=== PATIENT | female | born 1985 | race Caucasian/White ===

== ENCOUNTER 2017-04-22 21:07 | Emergency (ER) | payer SELFPAY ==
[2017-04-22 21:23] LABS: URINE HCG POC HCG POSITIVE (Negative)
[2017-04-22 21:53] LABS: BASO # 0.1 x10^3/uL (0.0-0.2); BASO % 0 % (0-3); EOS # 0.1 x10^3/uL (0.0-0.7); EOS % 1 % (0-3); LYMPH # 1.2 x10^3/uL (1.0-4.8); LYMPH % 6 % (24-48); MEAN CORPUSCULAR HEMOGLOBIN 30 pg (25-35); MEAN CORPUSCULAR HGB CONC 33 g/dL (31-37); MEAN CORPUSCULAR VOLUME 89 fL (79-100); MONO # 0.8 x10^3/uL (0.0-1.1); MONO % 4 % (0-9); NEUT % 89 % (31-73); PLATELET COUNT 275 x10^3/uL (140-400); RED BLOOD COUNT 5.04 x10^6/uL (3.50-5.40); RED CELL DISTRIBUTION WIDTH 13.5 % (11.5-14.5); WHITE BLOOD COUNT 20.1 x10^3/uL (4.0-11.0)
[2017-04-22 21:55] LABS: ADD MAN DIFF? YES; BILIRUBIN,URINE NEGATIVE (NEG); CLARITY,URINE TURBID; COLOR,URINE AMBER; GLUCOSE,URINE NEGATIVE (NEG); NITRITE,URINE NEGATIVE (NEG); PROTEIN,URINE NEGATIVE (NEG-TRACE); UROBILINOGEN,URINE 0.2 mg/dL (0.2 mg/dL)
[2017-04-22 22:07] LABS: ANION GAP 8 (6-14); BLOOD UREA NITROGEN 11 mg/dL (7-20); BUN/CREATININE RATIO 18 (6-20); CALCIUM 8.6 mg/dL (8.5-10.1); CARBON DIOXIDE 26 mmol/L (21-32); CHLORIDE 105 mmol/L (98-107); CREATININE 0.6 mg/dL (0.6-1.0); GFR 115.9; GLUCOSE 94 mg/dL (70-99); POTASSIUM 3.8 mmol/L (3.5-5.1); SODIUM 139 mmol/L (136-145)
[2017-04-22] MEDS: IV NORMAL SALINE 1000ML BAG 1,000 ML IV ×4 (22:10→23:00)
[2017-04-22 22:11] LABS: ALBUMIN 4.1 g/dL (3.4-5.0); ALBUMIN/GLOBULIN RATIO 1.2 (1.0-1.7); ALK PHOS 61 U/L (46-116); ALT (SGPT) 21 U/L (14-59); AMORPHOUS SEDIMENT,UR PRESENT /HPF; AST (SGOT) 17 U/L (15-37); BACTERIA,URINE FEW /HPF (0-FEW); LIPASE 123 U/L (73-393); RBC,URINE 0 /HPF (0-2); SQUAMOUS EPITHELIAL CELL,UR MOD /LPF; TOTAL BILIRUBIN 0.5 mg/dL (0.2-1.0); TOTAL PROTEIN 7.5 g/dL (6.4-8.2)
[2017-04-22 22:32] LABS: % BANDS 2 % (0-9); % EOS 2 % (0-5); % LYMPHS 7 % (24-48); % MONOS 5 % (0-10); % SEGS 84 % (35-66); PLT ESTIMATE ADEQUATE (ADEQUATE)
== END 2017-04-22 23:45 | disposition home or self-care (01) ==
LOC: ER 21:07
DX: O21.0 Mild hyperemesis gravidarum (principal); O26.891 Other specified pregnancy related conditions, first trimester; R10.30 Lower abdominal pain, unspecified; R19.7 Diarrhea, unspecified; O99.321 Drug use complicating pregnancy, first trimester; F12.10 Cannabis abuse, uncomplicated; O99.331 Smoking (tobacco) complicating pregnancy, first trimester; F17.210 Nicotine dependence, cigarettes, uncomplicated; Z96.22 Myringotomy tube(s) status; Z91.018 Allergy to other foods; Z3A.08 8 weeks gestation of pregnancy; Z88.0 Allergy status to penicillin
CPT/HCPCS: 36415; 76801; 80053; 81001; 81025; 83690; 84702; 85007; 85025; 96360; 96361; 99285-25; J7030

== ENCOUNTER 2017-10-30 12:29 | Observation (INO) | payer SELFPAY ==
[~2017-10-30] VITALS: Ht 165.1 cm; Wt 55.3 kg
[~2017-10-30 12:29] MED LIST: DICY10CA53 PO; ONDA4TAB10 PO; ONDA4TAB10 SL
[2017-10-30 14:28] LABS: BILIRUBIN,URINE NEGATIVE (NEG); CLARITY,URINE CLEAR; COLOR,URINE YELLOW; NITRITE,URINE NEGATIVE (NEG); PROTEIN,URINE 30 mg/dL (NEG-TRACE)
[2017-10-30 14:37] LABS: BACTERIA,URINE MANY /HPF (0-FEW); SQUAMOUS EPITHELIAL CELL,UR MOD /LPF
[2017-10-30] MEDS ORDERED: IV NORMAL SALINE 1000ML BAG 1,000 ML IV ONE (15:00)
[2017-10-30] MEDS ORDERED: ONDANSETRON PF 4 MG/2 ML VIAL. IV ONE (15:00)
[2017-10-30 15:16] LABS: BASO % 0 % (0-3); EOS % 0 % (0-3); HEMOGLOBIN 12.8 g/dL (12.0-15.5); LYMPH % 7 % (24-48); MEAN CORPUSCULAR HEMOGLOBIN 30 pg (25-35); MEAN CORPUSCULAR HGB CONC 34 g/dL (31-37); MEAN CORPUSCULAR VOLUME 90 fL (79-100); MONO # 0.7 x10^3/uL (0.0-1.1); MONO % 5 % (0-9); NEUT % 88 % (31-73); PLATELET COUNT 179 x10^3/uL (140-400); RED BLOOD COUNT 4.24 x10^6/uL (3.50-5.40); WHITE BLOOD COUNT 14.8 x10^3/uL (4.0-11.0)
[2017-10-30 15:20] VITALS: BP 118/76
[2017-10-30 15:27] LABS: CALCIUM 8.4 mg/dL (8.5-10.1); CREATININE 0.4 mg/dL (0.6-1.0); POTASSIUM 3.7 mmol/L (3.5-5.1)
[2017-10-30 15:33] LABS: ALBUMIN 2.6 g/dL (3.4-5.0); ALBUMIN/GLOBULIN RATIO 0.7 (1.0-1.7); TOTAL BILIRUBIN 0.2 mg/dL (0.2-1.0); TOTAL PROTEIN 6.1 g/dL (6.4-8.2)
--- NOTE | 2017-10-30 15:35 | RAD ---
OB ULTRASOUND, > 14 WEEKS Clinical Indication: ABD PAIN , unsure of last menstrual period. Comparison: None. Technique: Multiple grayscale images, color Doppler, and M-mode images of the uterus are obtained. Findings: There is a single intrauterine gestation in vertex presentation. The placenta is anterior and fundal in location without evidence of placenta previa. The amount of amniotic fluid appears appropriate. Cervical length is approximately 3.9 cm. Biometrical data: BPD = 7.4 cm for 29 weeks 5 days. HC = 26.7 cm for 29 weeks 0 days. AC = 24.4 cm for 28 weeks 5 days. FL = 5.6 cm for 29 weeks 4 days. HC/AC ratio = 1.09. Overall, the estimated sonographic gestational age is 29 weeks and 2 days for an estimated date of delivery of January 13, 2018. Estimated weight is 1326 +/- 196 grams. The estimated heart rate is 140 beats per minute. A complete anatomic survey is not performed due to advanced gestational age. Impression: Single live intrauterine gestation with estimated sonographic gestational age of 29 weeks and 2 days. Electronically signed by: Khris Maher MD (10/30/2017 3:31 PM) [id number]
--- NOTE | 2017-10-30 15:41 | PHYS DOC ---
Past Medical History Past Medical History: Anemia, Sciatica, Other Additional Past Medical Histor: HYPOGLYCEMIA, SCOLIOSIS Past Surgical History: Tubal ligation, Other Additional Past Surgical Histo: BILAT MYRINGOTOMY W/TUBES Alcohol Use: None Drug Use: Marijuana Adult General Chief Complaint Chief Complaint: ABDOMINAL PAIN [facility] HPI Patient is a 32 year old F who presents with abd pain. Patient thinks her last period may have been about 3 months ago. She is unsure if she is or not. She says she has a cramping pain in the top of her abdomen. She denies chest pain, shortness of breath. She has not followed up with her doctor. She notes that she has a history of IBS and thinks that's what this is. She has intermittent constipation and diarrhea. Denies vaginal bleeding or discharge. Reports she is safe at home. Review of Systems Review of Systems Constitutional: Denies fever or chills HENT: Denies nasal congestion or sore throat Respiratory: Denies cough or shortness of breath Cardiovascular: No additional information not addressed in HPI [] GI: Denies abdominal pain, nausea, vomiting, bloody stools or diarrhea : Denies dysuria or hematuria Musculoskeletal: Denies back pain or joint pain Integument: Denies rash or skin lesions Neurologic: Denies headache, focal weakness or sensory changes All other systems were reviewed and found to be within normal limits, except as documented in this note. Current Medications Current Medications Current Medications Medications (Trade) Dose Ordered Sig/Jossue Start Time Stop Time Status Last Admin Dose Admin Ondansetron HCl (Zofran) 4 mg 1X ONCE 10/30/17 15:00 10/30/17 15:01 DC 10/30/17 15:28 4 MG Sodium Chloride 1,000 ml @ 1,000 mls/hr 1X ONCE 10/30/17 15:00 10/30/17 15:59 10/30/17 15:28 1,000 MLS/HR Allergies Allergies Allergies Coded Allergies Type Severity Reaction Last Updated Verified Penicillins Allergy Intermediate 01/31/17 Yes strawberry Allergy Intermediate 01/31/17 Yes Physical Exam Physical Exam Constitutional: Well developed, well nourished, no acute distress, non-toxic appearance. HENT: Normocephalic, atraumatic, bilateral external ears normal, oropharynx moist, no oral exudates, nose normal. Eyes: PERRLA, EOMI, conjunctiva normal, no discharge. Neck: Normal range of motion, no tenderness, supple, no stridor. Cardiovascular:Heart rate regular rhythm, no murmur Lungs & Thorax: Bilateral breath sounds clear to auscultation Abdomen: Bowel sounds normal, soft, no tenderness, no masses, appears gravid Skin: Warm, dry, no erythema, no rash. Back: No tenderness, no CVA tenderness. Extremities: ROM intact, no edema. Neurologic: Alert and oriented X 3, normal motor function, normal sensory function, no focal deficits noted. Current Patient Data Vital Signs Vital Signs Date Time Temp Pulse Resp B/P (MAP) Pulse Ox O2 Delivery O2 Flow Rate FiO2 10/30/17 13:00 96.0 73 12 94/55 (68) 99 Room Air 96.0 Lab Values Laboratory Tests Test 10/30/17 13:00 10/30/17 14:19 10/30/17 15:00 Urine Collection Type Void Urine Color Yellow Urine Clarity Clear Urine pH 7.0 Urine Specific [place] 1.025 Urine Protein 30 mg/dL (NEG-TRACE) Urine Glucose (UA) Negative mg/dL (NEG) Urine Ketones (Stick) Negative mg/dL (NEG) Urine Blood Negative (NEG) Urine Nitrite Negative (NEG) Urine Bilirubin Negative (NEG) Urine Urobilinogen Dipstick 1.0 mg/dL (0.2 mg/dL) Urine Leukocyte Esterase Small (NEG) Urine RBC 3-5 /HPF (0-2) Urine WBC 1-4 /HPF (0-4) Urine Squamous Epithelial Cells Mod /LPF Urine Bacteria Many /HPF (0-FEW) Urine Mucus Marked /LPF POC Urine HCG, Qualitative Hcg positive (Negative) White Blood Count 14.8 x10^3/uL (4.0-11.0) H Red Blood Count 4.24 x10^6/uL (3.50-5.40) Hemoglobin 12.8 g/dL (12.0-15.5) Hematocrit 38.0 % (36.0-47.0) Mean Corpuscular Volume 90 fL (79-100) Mean Corpuscular Hemoglobin 30 pg (25-35) Mean Corpuscular Hemoglobin Concent 34 g/dL (31-37) Red Cell Distribution Width 13.0 % (11.5-14.5) Platelet Count 179 x10^3/uL (140-400) Neutrophils (%) (Auto) 88 % (31-73) H Lymphocytes (%) (Auto) 7 % (24-48) L Monocytes (%) (Auto) 5 % (0-9) Eosinophils (%) (Auto) 0 % (0-3) Basophils (%) (Auto) 0 % (0-3) Neutrophils # (Auto) 13.0 x10^3uL (1.8-7.7) H Lymphocytes # (Auto) 1.0 x10^3/uL (1.0-4.8) Monocytes # (Auto) 0.7 x10^3/uL (0.0-1.1) Eosinophils # (Auto) 0.0 x10^3/uL (0.0-0.7) Basophils # (Auto) 0.0 x10^3/uL (0.0-0.2) Segmented Neutrophils % 74 % (35-66) H Band Neutrophils % 10 % (0-9) H Lymphocytes % 9 % (24-48) L Monocytes % 7 % (0-10) Toxic Granulation Slight Toxic Vacuolation Slight Platelet Estimate Adequate (ADEQUATE) Sodium Level 137 mmol/L (136-145) Potassium Level 3.7 mmol/L (3.5-5.1) Chloride Level 105 mmol/L (98-107) Carbon Dioxide Level 26 mmol/L (21-32) Anion Gap 6 (6-14) Blood Urea Nitrogen 4 mg/dL (7-20) L Creatinine 0.4 mg/dL (0.6-1.0) L Estimated GFR (Cockcroft-Gault) 185.0 BUN/Creatinine Ratio 10 (6-20) Glucose Level 77 mg/dL (70-99) Calcium Level 8.4 mg/dL (8.5-10.1) L Total Bilirubin 0.2 mg/dL (0.2-1.0) Aspartate Amino Transferase (AST) 11 U/L (15-37) L Alanine Aminotransferase (ALT) 11 U/L (14-59) L Alkaline Phosphatase 105 U/L (46-116) Total Protein 6.1 g/dL (6.4-8.2) L Albumin 2.6 g/dL (3.4-5.0) L Albumin/Globulin Ratio 0.7 (1.0-1.7) L Laboratory Tests 10/30/17 15:00 Laboratory Tests 10/30/17 15:00 Course & Med Decision Making Course & Med Decision Making Pertinent Labs and Imaging studies reviewed. (See chart for details) 32-year-old female presents with abdominal cramping. Patient's test incidentally is positive. I informed her of this. Lab work ordered as well as ultrasound. Ultrasound shows 29 week . Patient's labs are reassuring. Patient transferred to L&D for labor rule out. Dragon Disclaimer Dragon Disclaimer This electronic medical record was generated, in whole or in part, using a voice recognition dictation system. Departure Departure Impression: Primary Impression: Disposition: 01 HOME, SELF-CARE Condition: STABLE Referrals: NO PCP (PCP) VINCE PLASENCIA MD Oct 30, 2017 15:41
[2017-10-30 15:43] LABS: % BANDS 10 % (0-9); % LYMPHS 9 % (24-48); % MONOS 7 % (0-10); % SEGS 74 % (35-66)
[2017-10-30 15:44] LABS: PLT ESTIMATE ADEQUATE (ADEQUATE); TOXIC GRANULATION SLIGHT; TOXIC VACUOLATION SLIGHT
[2017-10-30 15:55] LABS: BARBITURATES NEG (NEG); BENZODIAZEPINES NEG (NEG); CANNABINOIDS POS (NEG); COCAINE NEG (NEG); METHADONE NEG (NEG); OPIATES NEG (NEG); PHENCYCLIDINE NEG (NEG)
[2017-10-30 16:01] LABS: AMPHETAMINE/METHAMPHETAMINE POS (NEG)
[2017-10-30] MEDS ORDERED: IV RINGERS,LACTATED 1000ML 1,000 ML IV SCH (16:47)
[2017-10-30] MEDS ORDERED: ACETAMINOPHEN 325 MG TABLET. PO ONE (17:00)
== END 2017-10-30 19:34 | disposition home or self-care (01) ==
LOC: ER 12:29 → 3 SO LND 15:45
PROVIDERS: ADMIT Obstetrics & Gynecology; ATTEND Obstetrics & Gynecology
DX: O21.2 Late vomiting of pregnancy (principal); O26.893 Other specified pregnancy related conditions, third trimester; R19.7 Diarrhea, unspecified; Z3A.29 29 weeks gestation of pregnancy; Z79.899 Other long term (current) drug therapy
CPT/HCPCS: 36415; 76805; 80053; 80307; 81001; 81025; 84702; 85007; 85025; 86592; 86703; 86762; 86850; 86900; 86901; 87340; 87491; 87591; 96361; 96374; 99285; G0378; J2405; J7030; G0379; J7120; G0479

== ENCOUNTER 2017-10-31 04:26 | Observation (INO) | payer SELFPAY ==
[2017-10-30 15:20] VITALS: BP 118/76
[~2017-10-31] VITALS: Ht 165.1 cm; Wt 55.3 kg
[2017-10-31] MEDS ORDERED: ACETAMINOPHEN 325 MG TABLET. PO PRN (05:00)
[2017-10-31] MEDS ORDERED: ONDANSETRON PF 4 MG/2 ML VIAL. IV PRN (05:00)
[2017-10-31] MEDS ORDERED: MAG HYDROX/ALUMINUM HYD/SIMETH 30 ML ORAL.SUSP PO PRN (05:00)
[2017-10-31] MEDS: IV RINGERS,LACTATED 1000ML 1,000 ML IV SCH ×2 (05:07→08:53)
[2017-10-31] MEDS ORDERED: BUTORPHANOL 2 MG/ML VIAL. IV ONE (05:15)
[2017-10-31 08:24] LABS: BASO % 0 % (0-3); EOS % 0 % (0-3); HEMATOCRIT 35.4 % (36.0-47.0); HEMOGLOBIN 12.1 g/dL (12.0-15.5); LYMPH # 1.1 x10^3/uL (1.0-4.8); LYMPH % 13 % (24-48); MEAN CORPUSCULAR HEMOGLOBIN 30 pg (25-35); MEAN CORPUSCULAR HGB CONC 34 g/dL (31-37); MEAN CORPUSCULAR VOLUME 89 fL (79-100); MONO # 0.5 x10^3/uL (0.0-1.1); MONO % 6 % (0-9); NEUT # 6.8 x10^3uL (1.8-7.7); NEUT % 81 % (31-73); PLATELET COUNT 166 x10^3/uL (140-400); RED BLOOD COUNT 3.97 x10^6/uL (3.50-5.40); WHITE BLOOD COUNT 8.4 x10^3/uL (4.0-11.0)
[2017-10-31 09:35] LABS: BARBITURATES NEG (NEG); BENZODIAZEPINES NEG (NEG); COCAINE NEG (NEG); METHADONE NEG (NEG); OPIATES NEG (NEG); PHENCYCLIDINE NEG (NEG)
[2017-10-31 09:45] LABS: AMPHETAMINE/METHAMPHETAMINE POS (NEG); CANNABINOIDS POS (NEG)
== END 2017-10-31 18:15 | disposition home or self-care (01) ==
LOC: 3 SO LND 04:26
PROVIDERS: ADMIT Obstetrics & Gynecology; ATTEND Obstetrics & Gynecology
DX: O26.893 Other specified pregnancy related conditions, third trimester (principal); R10.9 Unspecified abdominal pain; Z3A.29 29 weeks gestation of pregnancy; Z79.899 Other long term (current) drug therapy
CPT/HCPCS: 36415; 80307; 85025; 96361; 96374; 96375; G0378; G0379; J2405; J7120; G0479

== ENCOUNTER 2018-01-07 17:05 | Inpatient (IN) | payer SELFPAY ==
[~2018-01-07] VITALS: Ht 165.1 cm; Wt 65.3 kg
[~2018-01-07 17:05] MED LIST changes: +OXYTOCIN PREMIX 30 UNIT/500 ML BAG. IV ONE
[2018-01-07] MEDS ORDERED: IV RINGERS,LACTATED 1000ML 1,000 ML IV SCH (17:22)
[2018-01-07] MEDS ORDERED: LIDOCAINE 1% PF 30 ML VIAL. ONE (17:26)
[2018-01-07] MEDS ORDERED: OXYTOCIN 30 UNIT/500 ML PREMIX 500 ML IV ONE (17:26)
[2018-01-07] MEDS ORDERED: OXYTOCIN 30 UNIT/500 ML PREMIX 500 ML IV PRN ×3 (17:30→18:00)
[2018-01-07] MEDS ORDERED: LIDOCAINE 1% PF 30 ML VIAL. INJ PRN (17:30)
[2018-01-07] MEDS ORDERED: 0.9 % SODIUM CHLORIDE 10 ML DISP.SYRIN. IV PRN ×2 (17:30→18:00)
[2018-01-07] MEDS ORDERED: TERBUTALINE 1 MG/ML VIAL. SQ PRN (17:30)
[2018-01-07] MEDS ORDERED: miSOPROStol 200MCG TAB 200 MCG TABLET ONE ×2 (17:33→18:00)
--- NOTE | 2018-01-07 17:48 | PDOC1 ---
OB - History Hx of Present Care: None Ultrasounds: Other (one sono at 16 wks) Obstetrical Complications: None Medical Complications: None Other Concerns: Drug use throughout including methamphetamines and marijuana. Past Family/Social History * Past Medical, Surgical, Family and Obstetric Histories reviewed from chart. Blood Type: Unknown Rubella: Unknown RPR/VDRL: Unknown GBS Status: Unknown HBsAG: Unknown OB - Chief Complaint & HPI Date of Admission: Date of Admission: Jan 07, 2018 at 17:05 Chief Complaint/History : 7 Para: 6 EGA: 39 Reason for admission: active labor Admission Nurse Assessment Rev: Yes OB - Admission Exam Physical Exam HEENT: Normal Heart: Regular Rate Lungs: Clear Abdomen: Gravid, Non tender, Soft Extremities: Normal Pulses, No tenderness or swelling Cervical Dilatation: 10cm Effacement: 100% Station: +3 Membranes: Intact Heart Rate: Normal Accelerations: Accelerations Present Decelerations: No decelerations Contractions on Admission: < 5 Minutes Apart Intensity: Firm Text A: 39 wks IUP No care Drug use during P: Admit for labor management. TANA MARTINEZ Jr, MD Jan 07, 2018 17:48
--- NOTE | 2018-01-07 17:51 | PDOC ---
VAGINAL DELIVERY DATE DATE: 01/07/18 TIME: 17:48 : 7 Para: 7 EGA: 39 VAGINAL DELIVERY: VTX VACCUM ASSISTED: No PLACENTA: Spontaneous 8/9 SEX: Female WEIGHT Weight [ 2625 gm] Nuchal Cord: No Amniotic Fluid: Clear PAIN: Natural EPISIOTOMY: No EXTENSION: No EBL 300 ml COMPLICATIONS none ADDITIONAL NOTES Pt. with no PNC. She reports methamphetamine and marijuana use during . She does not have custody of any previous children. She adopted 2 out. Her parents and FOB parents have 2 children each. Signs of Intrauterine Infectio: None Shoulder Dystocia: No TANA MARTINEZ Jr, MD Jan 07, 2018 17:50
[2018-01-07 17:54] LABS: BASO % 0 % (0-3); EOS % 0 % (0-3); HEMATOCRIT 36.1 % (36.0-47.0); HEMOGLOBIN 12.1 g/dL (12.0-15.5); LYMPH # 1.9 x10^3/uL (1.0-4.8); LYMPH % 17 % (24-48); MEAN CORPUSCULAR HEMOGLOBIN 29 pg (25-35); MEAN CORPUSCULAR HGB CONC 33 g/dL (31-37); MEAN CORPUSCULAR VOLUME 86 fL (79-100); MONO # 0.6 x10^3/uL (0.0-1.1); MONO % 6 % (0-9); NEUT # 8.7 x10^3uL (1.8-7.7); NEUT % 77 % (31-73); PLATELET COUNT 220 x10^3/uL (140-400); RED BLOOD COUNT 4.21 x10^6/uL (3.50-5.40); RED CELL DISTRIBUTION WIDTH 14.2 % (11.5-14.5); WHITE BLOOD COUNT 11.3 x10^3/uL (4.0-11.0)
[2018-01-07 17:54] LABS: BARBITURATES NEG (NEG); BENZODIAZEPINES NEG (NEG); CANNABINOIDS POS (NEG); COCAINE NEG (NEG); METHADONE NEG (NEG); OPIATES NEG (NEG); PHENCYCLIDINE NEG (NEG)
[2018-01-07 17:55] LABS: AMPHETAMINE/METHAMPHETAMINE NEG (NEG)
[2018-01-07] MEDS ORDERED: MMR per PROTOCOL. MC PRN (18:00)
[2018-01-07] MEDS ORDERED: MAGNESIUM HYDROXIDE 2,400 MG/30 ML ORAL.SUSP. PO PRN (18:00)
[2018-01-07] MEDS ORDERED: PHENYLEPH/MINERAL OIL/PETROLAT RECTAL OINTMENT 28GM TUBE. RC PRN (18:00)
[2018-01-07] MEDS ORDERED: ACETAMINOPHEN 325 MG TABLET. PO PRN (18:00)
[2018-01-07] MEDS ORDERED: MAG HYDROX/ALUMINUM HYD/SIMETH 30 ML ORAL.SUSP PO PRN (18:00)
[2018-01-07] MEDS ORDERED: BENZOCAINE 20% TOPICAL AEROSOL SPRAY 57GM CAN. TP PRN (18:00)
[2018-01-07] MEDS ORDERED: HYDROCORTISONE 1% TOPICAL OINTMENT 30GM TUBE. TP PRN (18:00)
[2018-01-07] MEDS ORDERED: SIMETHICONE 80 MG TAB.CHEW PO PRN (18:00)
[2018-01-07] MEDS ORDERED: diphenhydrAMINE HCL 25 MG CAPSULE PO PRN (18:00)
[2018-01-07] MEDS ORDERED: IBUPROFEN 400 MG TABLET. PO PRN (18:00)
[2018-01-07 18:01] LABS: BILIRUBIN,URINE NEGATIVE (NEG); CLARITY,URINE TURBID; COLOR,URINE YELLOW; NITRITE,URINE NEGATIVE (NEG); PROTEIN,URINE NEGATIVE (NEG-TRACE)
[2018-01-07] MEDS ORDERED: PNV1TABL25 PO (18:03)
[2018-01-07 18:19] LABS: AMORPHOUS SEDIMENT,UR PRESENT /HPF; BACTERIA,URINE FEW /HPF (0-FEW); SQUAMOUS EPITHELIAL CELL,UR FEW /LPF
[2018-01-07] MEDS: IBUPROFEN 400 MG TABLET. PO PRN (19:30)
[2018-01-07 20:10] VITALS: BP 109/76
[2018-01-07 21:10] VITALS: BP 100/61
[2018-01-07] MEDS: ZOLPIDEM 5 MG TABLET. PO PRN (21:18)
[2018-01-07] MEDS ORDERED: INFLUENZA VAX SCREEN BY RX. MC PRN (21:45)
[2018-01-08 01:30] VITALS: BP 105/70
[2018-01-08 06:01] VITALS: BP 97/64
[2018-01-08 07:18] LABS: BASO % 0 % (0-3); EOS # 0.1 x10^3/uL (0.0-0.7); EOS % 1 % (0-3); HEMATOCRIT 34.6 % (36.0-47.0); HEMOGLOBIN 11.6 g/dL (12.0-15.5); LYMPH # 3.2 x10^3/uL (1.0-4.8); LYMPH % 23 % (24-48); MEAN CORPUSCULAR HEMOGLOBIN 29 pg (25-35); MEAN CORPUSCULAR HGB CONC 34 g/dL (31-37); MEAN CORPUSCULAR VOLUME 85 fL (79-100); MONO # 0.8 x10^3/uL (0.0-1.1); MONO % 5 % (0-9); NEUT # 10.1 x10^3uL (1.8-7.7); NEUT % 71 % (31-73); PLATELET COUNT 205 x10^3/uL (140-400); RED BLOOD COUNT 4.05 x10^6/uL (3.50-5.40); RED CELL DISTRIBUTION WIDTH 14.2 % (11.5-14.5); WHITE BLOOD COUNT 14.2 x10^3/uL (4.0-11.0)
[2018-01-08] MEDS ORDERED: FERROUS SULFATE 325 MG TABLET. PO SCH (08:00)
[2018-01-08] MEDS: IBUPROFEN 400 MG TABLET. PO PRN ×3 (09:03→22:42)
[2018-01-08] MEDS: DOCUSATE SODIUM 100 MG CAPSULE. PO PRN ×2 (09:03→22:42)
[2018-01-08 15:10] VITALS: BP 115/74
--- NOTE | 2018-01-08 17:36 | PDOC ---
OB Progress Note Date of Service 01/08/18 Time of Evaluation 1730 Notes Pt. feeling well. No complaints. Lab Laboratory Tests Test 01/07/18 17:25 01/07/18 17:30 01/08/18 06:30 White Blood Count 11.3 x10^3/uL (4.0-11.0) 14.2 x10^3/uL (4.0-11.0) Red Blood Count 4.21 x10^6/uL (3.50-5.40) 4.05 x10^6/uL (3.50-5.40) Hemoglobin 12.1 g/dL (12.0-15.5) 11.6 g/dL (12.0-15.5) Hematocrit 36.1 % (36.0-47.0) 34.6 % (36.0-47.0) Mean Corpuscular Volume 86 fL (79-100) 85 fL (79-100) Mean Corpuscular Hemoglobin 29 pg (25-35) 29 pg (25-35) Mean Corpuscular Hemoglobin Concent 33 g/dL (31-37) 34 g/dL (31-37) Red Cell Distribution Width 14.2 % (11.5-14.5) 14.2 % (11.5-14.5) Platelet Count 220 x10^3/uL (140-400) 205 x10^3/uL (140-400) Neutrophils (%) (Auto) 77 % (31-73) 71 % (31-73) Lymphocytes (%) (Auto) 17 % (24-48) 23 % (24-48) Monocytes (%) (Auto) 6 % (0-9) 5 % (0-9) Eosinophils (%) (Auto) 0 % (0-3) 1 % (0-3) Basophils (%) (Auto) 0 % (0-3) 0 % (0-3) Neutrophils # (Auto) 8.7 x10^3uL (1.8-7.7) 10.1 x10^3uL (1.8-7.7) Lymphocytes # (Auto) 1.9 x10^3/uL (1.0-4.8) 3.2 x10^3/uL (1.0-4.8) Monocytes # (Auto) 0.6 x10^3/uL (0.0-1.1) 0.8 x10^3/uL (0.0-1.1) Eosinophils # (Auto) 0.0 x10^3/uL (0.0-0.7) 0.1 x10^3/uL (0.0-0.7) Basophils # (Auto) 0.0 x10^3/uL (0.0-0.2) 0.0 x10^3/uL (0.0-0.2) Treponema pallidum Antibody Nonreactive (Nonreactive) Urine Collection Type Unknown Urine Color Yellow Urine Clarity Turbid Urine pH 8.0 Urine Specific [place] 1.025 Urine Protein Negative mg/dL (NEG-TRACE) Urine Glucose (UA) Negative mg/dL (NEG) Urine Ketones (Stick) Negative mg/dL (NEG) Urine Blood Trace (NEG) Urine Nitrite Negative (NEG) Urine Bilirubin Negative (NEG) Urine Urobilinogen Dipstick 1.0 mg/dL (0.2 mg/dL) Urine Leukocyte Esterase Small (NEG) Urine RBC 6-10 /HPF (0-2) Urine WBC 1-4 /HPF (0-4) Urine Squamous Epithelial Cells Few /LPF Urine Amorphous Sediment Present /HPF Urine Bacteria Few /HPF (0-FEW) Urine Mucus Marked /LPF Urine Opiates Screen Neg (NEG) Urine Methadone Screen Neg (NEG) Urine Barbiturates Neg (NEG) Urine Phencyclidine Screen Neg (NEG) Urine Amphetamine/Methamphetamine Neg (NEG) Urine Benzodiazepines Screen Neg (NEG) Urine Cocaine Screen Neg (NEG) Urine Cannabinoids Screen Pos (NEG) Urine Ethyl Alcohol Neg (NEG) Laboratory Tests Test 01/08/18 06:30 White Blood Count 14.2 x10^3/uL (4.0-11.0) Red Blood Count 4.05 x10^6/uL (3.50-5.40) Hemoglobin 11.6 g/dL (12.0-15.5) Hematocrit 34.6 % (36.0-47.0) Mean Corpuscular Volume 85 fL (79-100) Mean Corpuscular Hemoglobin 29 pg (25-35) Mean Corpuscular Hemoglobin Concent 34 g/dL (31-37) Red Cell Distribution Width 14.2 % (11.5-14.5) Platelet Count 205 x10^3/uL (140-400) Neutrophils (%) (Auto) 71 % (31-73) Lymphocytes (%) (Auto) 23 % (24-48) Monocytes (%) (Auto) 5 % (0-9) Eosinophils (%) (Auto) 1 % (0-3) Basophils (%) (Auto) 0 % (0-3) Neutrophils # (Auto) 10.1 x10^3uL (1.8-7.7) Lymphocytes # (Auto) 3.2 x10^3/uL (1.0-4.8) Monocytes # (Auto) 0.8 x10^3/uL (0.0-1.1) Eosinophils # (Auto) 0.1 x10^3/uL (0.0-0.7) Basophils # (Auto) 0.0 x10^3/uL (0.0-0.2) Medications Current Medications Sodium Chloride (Normal Saline Flush) 3 ml QSHIFT PRN IV AFTER MEDS AND BLOOD DRAWS; Start 01/07/18 at 17:30 Ringer's Solution 1,000 ml @ 125 mls/hr Q8H IV ; Start 01/07/18 at 17:22; Stop 01/08/18 at 06:07; Status DC Terbutaline Sulfate (Brethine) 0.25 mg 1X PRN PRN SQ SEE COMMENTS; Start 01/07 at 17:30; Stop 01/08/18 at 17:29; Status DC Lidocaine HCl (Xylocaine 1% Pf 30ml Vial) 30 ml 1X PRN PRN INJ SEE COMMENTS; Start 01/07/18 at 17:30; Stop 01/09/18 at 17:29 Oxytocin/Sodium Chloride 500 ml @ 0 mls/hr CONT PRN IV SEE I/O RECORD; Start 01/07/18 at 17:30 Oxytocin/Sodium Chloride 500 ml @ 0 mls/hr CONT PRN PRN IV Post delivery bleeding Last administered on 01/07/18at 18:12; Start 01/07/18 at 17:30 Ibuprofen (Motrin) 800 mg PRN Q6HRS PRN PO PAIN Last administered on at 14:57; Start 01/07/18 at 17:30 Lidocaine HCl (Xylocaine 1% Pf 30ml Vial) 30 ml STK-MED ONCE .ROUTE ; Start at 17:26; Stop 01/07/18 at 17:27; Status DC Oxytocin/Sodium Chloride 500 ml @ As Directed STK-MED ONCE IV ; Start at 17:26; Stop 01/07/18 at 17:27; Status DC Misoprostol (Cytotec 200mcg Tab) 200 mcg STK-MED ONCE .ROUTE ; Start 01/07/18 at 17:33; Stop 01/07/18 at 17:34; Status DC Sodium Chloride (Normal Saline Flush) 10 ml QSHIFT PRN IV AFTER MEDS AND BLOOD DRAWS; Start 01/07/18 at 18:00 Oxytocin/Sodium Chloride 500 ml @ 62.5 mls/hr CONT PRN IV SEE I/O RECORD; Start 01/07/18 at 18:00; Stop 01/08/18 at 01:59; Status DC Acetaminophen (Tylenol) 650 mg PRN Q6HRS PRN PO MILD PAIN / TEMP Last administered on 01/08/18at 14:56; Start 01/07/18 at 18:00 Ibuprofen (Motrin) 800 mg PRN Q8HRS PRN PO INFLAMMATION/PAIN PREVENTION; Start 01/07/18 at 18:00; Status UNV Docusate Sodium (Colace) 100 mg PRN BID PRN PO HARD STOOLS Last administered on 01/08/18at 09:03; Start 01/07/18 at 18:00 Magnesium Hydroxide (Milk Of Magnesia) 2,400 mg PRN DAILY PRN PO CONSTIPATION; Start 01/07/18 at 18:00 Al Hydroxide/Mg Hydroxide (Mylanta Plus Xs) 30 ml PRN Q4HRS PRN PO HEARTBURN / GAS; Start 01/07/18 at 18:00 Simethicone (Gas-X) 80 mg PRN AFTMEALHC PRN PO GAS / BLOATING; Start 01/07/18 at 18:00 Diphenhydramine HCl (Benadryl) 25 mg PRN Q6HRS PRN PO ITCHING; Start 01/07/18 at 18:00 Benzocaine (Americaine) 1 spray PRN QID PRN TP TOPICAL PAIN Last administered on 01/07/18at 19:30; Start 01/07/18 at 18:00 Phenyleph/Shark Oil/Min Oil/Petrol (Preparation H) 1 shashi PRN QID PRN RC RECTAL PAIN; Start 01/07/18 at 18:00 Hydrocortisone (Cortaid) 1 shashi PRN QID PRN TP PERINEAL PAIN; Start 01/07/18 at 18:00 Ferrous Sulfate (Feosol) 325 mg BIDWMEALS PO ; Start 01/08/18 at 08:00 Zolpidem Tartrate (Ambien) 5 mg PRN QHS PRN PO INSOMNIA, MAY REPEAT X1 Last administered on 01/07/18at 21:18; Start 01/07/18 at 18:00 Info (Do NOT chart on this placeholder) 1 ea 1X PRN PRN MC SEE COMMENTS; Start 01/07/18 at 18:00 Info (Do NOT chart on this placeholder) 1 ea 1X PRN PRN MC SEE COMMENTS; Start 01/07/18 at 18:00 Info (FLU VACCINE SCREEN per RX) 1 each PRN 1X PRN MC SEE COMMENTS; Start at 21:45; Status UNV Influenza Virus Vaccine (Afluria Trivalent [id number] Syringe) 0.5 ml ONCE ONCE VAX IM Last administered on 01/08/18at 12:39; Start 01/08/18 at 09:00; Stop 01/08/18 at 09:01; Status DC Oxytocin/Sodium Chloride (Oxytocin Premix Infusion) 30 unit STK-MED ONCE IV ; Start 01/07/18 at 17:00; Stop 01/08/18 at 13:12; Status DC Misoprostol (Cytotec 200mcg Tab) 800 mcg STK-MED ONCE .ROUTE ; Start 01/07/18 at 18:00; Stop 01/08/18 at 13:20; Status DC Active Scripts Active Reported Tablet (Pnv Cmb#95/Ferrous Fumarate/Fa) 1 Each Tablet 1 Tab PO DAILY Exam Abd: soft, non tender, fundus firm Assessment PPD#1 s/p Plan of Care: Continue current Tx, TANA Flanagan Jr, MD Jan 08, 2018 17:36
[2018-01-08 18:31] VITALS: BP 121/71
[2018-01-08 22:40] VITALS: BP 104/72
[2018-01-08] MEDS: ZOLPIDEM 5 MG TABLET. PO PRN (22:42)
--- NOTE | 2018-01-09 09:54 | PDOC3 ---
OB DISCHARGE SUMMARY DATE OF ADMISSION: 01/07/18 DATE OF DISCHARGE: 01/09/18 REASON FOR ADMISSION: Onset of labor INTRAPARTUM PROCEDURES: Spontanous Vag Deliv DISCHARGE DIAGNOSIS: Term Delivered, Others (no care) DISCHARGE INFORMATION: Activity (ad reyna), Diet (regular), Instructions (pelvic rest x 6 wks) HOSPITAL COURSE Term gestation with no care presented in labor. She delivered vaginally without complications. She has h/o drug use during . TANA MARTINEZ Jr, MD Jan 09, 2018 09:54
--- NOTE | 2018-01-09 09:55 | DISCH ---
DISCHARGE INSTRUCTIONS Condition on Discharge Condition on Discharge: Stable Activity After Discharge Activity Instructions for Disc: Activity as tolerated Lifting Instructions after Dis: No heavy lifting Driving Instructions after Dis: Do not drive today Diet after Discharge Diet after Discharge: Regular Contacting the DRLevon after DC Call your doctor for: Concerns you may have Follow-Up Follow up with: Dr. Xiong in 6 wks. TANA XIONG Jr, MD Jan 09, 2018 09:55
[2018-01-09] MEDS ORDERED: IBUP-1027 PO (09:57)
[2018-01-09] MEDS: IBUPROFEN 400 MG TABLET. PO PRN (10:40)
== END 2018-01-09 10:45 | disposition home or self-care (01) | DRG 807 ==
LOC: 3 SO LND 17:05 → OBSVTOIN 17:05 → 3 NORTH 20:10
PROVIDERS: ADMIT Obstetrics & Gynecology; ATTEND Obstetrics & Gynecology
PROC: 10E0XZZ Delivery of Products of Conception, External Approach (ICD-10-PCS; principal; 2018-01-07)
DX: O99.324 Drug use complicating childbirth (principal); Z37.0 Single live birth; F12.90 Cannabis use, unspecified, uncomplicated; Z3A.39 39 weeks gestation of pregnancy
CPT/HCPCS: 36415; 80307; 81001; 85025; 86592; 86850; 86900; 86901; 87086; 90471; 90756; G0378; J2590; G0479; Q2035

== ENCOUNTER 2018-06-04 08:52 | Emergency (ER) | payer SELFPAY ==
[~2018-06-04] VITALS: Ht 165.1 cm; Wt 52.2 kg
[~2018-06-04 08:52] MED LIST changes: +IBUP-1027 PO; -OXYTOCIN PREMIX 30 UNIT/500 ML BAG. IV ONE; +PNV1TABL25 PO
--- NOTE | 2018-06-04 09:34 | PHYS DOC ---
Past Medical History Additional Past Medical Histor: HYPOGLYCEMIA, SCOLIOSIS Past Surgical History: No Surgical History Additional Past Surgical Histo: BILAT MYRINGOTOMY W/TUBES Smoking: Cigarettes Alcohol Use: None Drug Use: Marijuana Adult General Chief Complaint Chief Complaint: ABDOMINAL PAIN HPI HPI Patient is a 33-year-old female presents to the emergency department for evaluation. She states that this morning she has had multiple episodes of nausea vomiting and diarrhea, along with some generalized abdominal pain. She has not had any fevers or chills. She has not had any bloody emesis or stools, urinary symptoms, vaginal bleeding or discharge. There are no alleviating, or exacerbating factors to the patient's symptoms. She states she has had similar symptoms numerous times in the past, with no clear diagnosis. Review of Systems Review of Systems Constitutional: Denies fever or chills [] Eyes: Denies change in visual acuity, redness, or eye pain [] HENT: Denies nasal congestion or sore throat [] Respiratory: Denies cough or shortness of breath [] Cardiovascular: The patient denies any shortness of breath, chest pain, palpitations, or orthopnea [] GI: No additional information not addressed in HPI [] : Denies dysuria or hematuria [] Musculoskeletal: Denies back pain or joint pain [] Integument: Denies rash or skin lesions [] Neurologic: Denies headache, focal weakness or sensory changes [] Endocrine: Denies polyuria or polydipsia [] All other systems were reviewed and found to be within normal limits, except as documented in this note. Current Medications Current Medications Current Medications Medications (Trade) Dose Ordered Sig/[facility] Start Time Stop Time Status Last Admin Dose Admin Info (CONTRAST GIVEN -- Rx MONITORING) 1 each PRN DAILY PRN 06/04/18 11:30 06/06/18 11:29 Iohexol (Omnipaque 300 Mg/ml) 75 ml 1X ONCE 06/04/18 11:30 06/04/18 11:31 DC 06/04/18 11:29 75 ML Ondansetron HCl (Zofran) 4 mg 1X ONCE 06/04/18 09:45 06/04/18 09:46 DC 06/04/18 09:43 4 MG Sodium Chloride 1,000 ml @ 1,000 mls/hr 1X ONCE 06/04/18 09:30 06/04/18 10:29 DC 06/04/18 10:40 1,000 MLS/HR Allergies Allergies Allergies Coded Allergies Type Severity Reaction Last Updated Verified Penicillins Allergy Intermediate 01/31/17 Yes strawberry Allergy Intermediate 01/31/17 Yes Physical Exam Physical Exam PHYSICAL EXAM: CONSTITUTIONAL: Well developed, well nourished HEAD: normocephalic, atraumatic EENT: PERRL, EOMI. Conjunctivae normal color, sclerae non-icteric; moist mucous membranes. NECK: Supple, non-tender; no meningismus. LUNGS: Lungs CTA, breathing even and unlabored. Normal air movement. HEART: Regular rate and rhythm, no murmur CHEST: No deformity; non-tender ABDOMEN: The abdomen is soft, there is mild diffuse tenderness to palpation to the entire abdomen without focal tenderness, rebound, or guarding, the right lower quadrant and right upper quadrant themselves are relatively nontender, Rondon's sign is absent, no masses or bruits. EXTREM: Normal ROM; no deformity, no calf tenderness. Normal pulses palpable in all extremities. There is no pedal edema. SKIN: No rash; no diaphoresis NEURO: Alert; normal speech and cognition; CN's grossly intact; strength grossly intact without focal deficit. BACK: No CVA TTP. Current Patient Data Vital Signs Vital Signs Date Time Temp Pulse Resp B/P (MAP) Pulse Ox O2 Delivery O2 Flow Rate FiO2 06/04/18 12: 71 11 114/68 (83) 97 Room Air 06/04/18 09:05 97.5 97.5 Lab Values Laboratory Tests Test 06/04/18 09:38 06/04/18 11:02 06/04/18 11:11 White Blood Count 18.3 x10^3/uL (4.0-11.0) H Red Blood Count 5.34 x10^6/uL (3.50-5.40) Hemoglobin 15.8 g/dL (12.0-15.5) H Hematocrit 48.6 % (36.0-47.0) H Mean Corpuscular Volume 91 fL (79-100) Mean Corpuscular Hemoglobin 30 pg (25-35) Mean Corpuscular Hemoglobin Concent 33 g/dL (31-37) Red Cell Distribution Width 14.0 % (11.5-14.5) Platelet Count 236 x10^3/uL (140-400) Neutrophils (%) (Auto) 87 % (31-73) H Lymphocytes (%) (Auto) 8 % (24-48) L Monocytes (%) (Auto) 4 % (0-9) Eosinophils (%) (Auto) 1 % (0-3) Basophils (%) (Auto) 0 % (0-3) Neutrophils # (Auto) 15.9 x10^3uL (1.8-7.7) H Lymphocytes # (Auto) 1.5 x10^3/uL (1.0-4.8) Monocytes # (Auto) 0.7 x10^3/uL (0.0-1.1) Eosinophils # (Auto) 0.1 x10^3/uL (0.0-0.7) Basophils # (Auto) 0.0 x10^3/uL (0.0-0.2) Segmented Neutrophils % 50 % (35-66) Band Neutrophils % 34 % (0-9) H Lymphocytes % 10 % (24-48) L Atypical Lymphocytes % (Manual) 1 % (0-0) H Monocytes % 3 % (0-10) Eosinophils % 1 % (0-5) Metamyelocytes % 1 % (0-0) H Platelet Estimate Adequate (ADEQUATE) Sodium Level 144 mmol/L (136-145) Potassium Level 3.7 mmol/L (3.5-5.1) Chloride Level 105 mmol/L (98-107) Carbon Dioxide Level 25 mmol/L (21-32) Anion Gap 14 (6-14) Blood Urea Nitrogen 10 mg/dL (7-20) Creatinine 0.7 mg/dL (0.6-1.0) Estimated GFR (Cockcroft-Gault) 96.4 BUN/Creatinine Ratio 14 (6-20) Glucose Level 98 mg/dL (70-99) Lactic Acid Level 2.7 mmol/L (0.4-2.0) H Calcium Level 9.0 mg/dL (8.5-10.1) Total Bilirubin 0.1 mg/dL (0.2-1.0) L Aspartate Amino Transferase (AST) 30 U/L (15-37) Alanine Aminotransferase (ALT) 38 U/L (14-59) Alkaline Phosphatase 56 U/L (46-116) Total Protein 7.1 g/dL (6.4-8.2) Albumin 3.5 g/dL (3.4-5.0) Albumin/Globulin Ratio 1.0 (1.0-1.7) Lipase 178 U/L (73-393) Urine Collection Type Unknown Urine Color Yellow Urine Clarity Cloudy Urine pH 5.5 Urine Specific Powers 1.020 Urine Protein Negative mg/dL (NEG-TRACE) Urine Glucose (UA) Negative mg/dL (NEG) Urine Ketones (Stick) Negative mg/dL (NEG) Urine Blood Negative (NEG) Urine Nitrite Negative (NEG) Urine Bilirubin Negative (NEG) Urine Urobilinogen Dipstick 0.2 mg/dL (0.2 mg/dL) Urine Leukocyte Esterase Moderate (NEG) Urine RBC Occ /HPF (0-2) Urine WBC 5-10 /HPF (0-4) Urine Squamous Epithelial Cells Many /LPF Urine Bacteria Many /HPF (0-FEW) Urine Mucus Marked /LPF Urine Trichomonas Present Urine Opiates Screen Neg (NEG) Urine Methadone Screen Neg (NEG) Urine Barbiturates Neg (NEG) Urine Phencyclidine Screen Neg (NEG) Urine Amphetamine/Methamphetamine Pos (NEG) Urine Benzodiazepines Screen Neg (NEG) Urine Cocaine Screen Neg (NEG) Urine Cannabinoids Screen Pos (NEG) Urine Ethyl Alcohol Neg (NEG) POC Urine HCG, Qualitative Hcg negative (Negative) Laboratory Tests 06/04/18 09:38 Laboratory Tests 06/04/18 09:38 EKG EKG [] Radiology/Procedures Radiology/Procedures [PROCEDURE: CT ABD PELV W/ IV CONTRST ONLY EXAM: CT ABDOMEN/PELVIS WITH CONTRAST. HISTORY: Abdominal pain, leukocytosis . TECHNIQUE: Computed tomography of the abdomen and pelvis was performed after the intravenous administration of 75 mL Omnipaque 300. COMPARISON: None. FINDINGS: Lung windows through the visualized portions of the bases reveal mild atelectasis. Bone windows reveal no suspicious lesions. A mild superior plate compression deformity at T11 appears chronic. The liver, gallbladder, pancreas, adrenal glands and spleen are unremarkable. The kidneys enhance normally. There is no hydronephrosis. There are no pathologically enlarged lymph nodes. Fluid throughout the colon suggests diarrhea. There is no clear small bowel wall thickening or obstruction. There is no evidence of appendicitis. IMPRESSION: 1. Fluid throughout the colon suggests diarrhea. Correlate for enterocolitis.] Course & Med Decision Making Course & Med Decision Making Pertinent Labs and Imaging studies reviewed. (See chart for details) [1:00 PM:]Patient remains stable. She is feeling significantly better at this time. I discussed test results, the need for close follow-up, and return precautions. I discussed the importance of abstinence for marijuana and amphetamines. Dragon Disclaimer Dragon Disclaimer This electronic medical record was generated, in whole or in part, using a voice recognition dictation system. Departure Departure Impression: Primary Impression: Abdominal pain Additional Impression: Nausea vomiting and diarrhea Disposition: HOME, SELF-CARE Condition: STABLE Referrals: NO PCP (PCP) Patient Instructions: Abdominal Pain, Viral Gastroenteritis Scripts Ondansetron Hcl (ZOFRAN) 4 Mg Tablet 1 TAB PO Q6HRS PRN for NAUSEA/VOMITING, #20 TAB Prov: GILA TUBBS MD 06/04/18 Problem Qualifiers GILA TUBBS MD Jun 04, 2018 09:34
[2018-06-04] MEDS: ONDANSETRON PF 4 MG/2 ML VIAL. IV ONE (09:43)
[2018-06-04] MEDS: IV NORMAL SALINE 1000ML BAG 1,000 ML IV SCH (09:44)
[2018-06-04 09:54] LABS: BASO % 0 % (0-3); EOS # 0.1 x10^3/uL (0.0-0.7); EOS % 1 % (0-3); HEMATOCRIT 48.6 % (36.0-47.0); HEMOGLOBIN 15.8 g/dL (12.0-15.5); LYMPH # 1.5 x10^3/uL (1.0-4.8); LYMPH % 8 % (24-48); MEAN CORPUSCULAR HEMOGLOBIN 30 pg (25-35); MEAN CORPUSCULAR HGB CONC 33 g/dL (31-37); MEAN CORPUSCULAR VOLUME 91 fL (79-100); MONO # 0.7 x10^3/uL (0.0-1.1); MONO % 4 % (0-9); NEUT # 15.9 x10^3uL (1.8-7.7); NEUT % 87 % (31-73); PLATELET COUNT 236 x10^3/uL (140-400); RED BLOOD COUNT 5.34 x10^6/uL (3.50-5.40); WHITE BLOOD COUNT 18.3 x10^3/uL (4.0-11.0)
[2018-06-04 10:09] LABS: CREATININE 0.7 mg/dL (0.6-1.0); GFR 96.4; POTASSIUM 3.7 mmol/L (3.5-5.1)
[2018-06-04 10:26] LABS: ALBUMIN 3.5 g/dL (3.4-5.0); TOTAL BILIRUBIN 0.1 mg/dL (0.2-1.0); TOTAL PROTEIN 7.1 g/dL (6.4-8.2)
[2018-06-04] MEDS: IV NORMAL SALINE 1000ML BAG 1,000 ML IV ONE (10:40)
[2018-06-04 11:03] LABS: % ATYL 1 % (0-0); % BANDS 34 % (0-9); % EOS 1 % (0-5); % LYMPHS 10 % (24-48); % METAS 1 % (0-0); % MONOS 3 % (0-10); % SEGS 50 % (35-66)
[2018-06-04 11:04] LABS: PLT ESTIMATE ADEQUATE (ADEQUATE)
[2018-06-04 11:19] LABS: BILIRUBIN,URINE NEGATIVE (NEG); CLARITY,URINE CLOUDY; COLOR,URINE YELLOW; NITRITE,URINE NEGATIVE (NEG); PH,URINE 5.5; PROTEIN,URINE NEGATIVE (NEG-TRACE); UROBILINOGEN,URINE 0.2 mg/dL (0.2 mg/dL)
[2018-06-04 11:25] LABS: BARBITURATES NEG (NEG); BENZODIAZEPINES NEG (NEG); CANNABINOIDS POS (NEG); COCAINE NEG (NEG); METHADONE NEG (NEG); OPIATES NEG (NEG); PHENCYCLIDINE NEG (NEG)
[2018-06-04 11:26] LABS: AMPHETAMINE/METHAMPHETAMINE POS (NEG); SQUAMOUS EPITHELIAL CELL,UR MANY /LPF
[2018-06-04 11:27] LABS: BACTERIA,URINE MANY /HPF (0-FEW)
[2018-06-04 11:28] LABS: RBC,URINE OCC /HPF (0-2); TRICHOMONAS,URINE PRESENT
[2018-06-04] MEDS: IOHEXOL 300 MG/ML 100ML VIAL. IV ONE (11:29)
[2018-06-04] MEDS ORDERED: CONTRAST GIVEN. MC PRN (11:30)
[2018-06-04 12:19] VITALS: BP 114/68
--- NOTE | 2018-06-04 12:28 | RAD ---
EXAM: CT ABDOMEN/PELVIS WITH CONTRAST. HISTORY: Abdominal pain, leukocytosis . TECHNIQUE: Computed tomography of the abdomen and pelvis was performed after the intravenous administration of 75 mL Omnipaque 300. COMPARISON: None. FINDINGS: Lung windows through the visualized portions of the bases reveal mild atelectasis. Bone windows reveal no suspicious lesions. A mild superior plate compression deformity at T11 appears chronic. The liver, gallbladder, pancreas, adrenal glands and spleen are unremarkable. The kidneys enhance normally. There is no hydronephrosis. There are no pathologically enlarged lymph nodes. Fluid throughout the colon suggests diarrhea. There is no clear small bowel wall thickening or obstruction. There is no evidence of appendicitis. IMPRESSION: 1. Fluid throughout the colon suggests diarrhea. Correlate for enterocolitis. *One or more of the following individualized dose reduction techniques were utilized for this examination: 1. Automated exposure control. 2. Adjustment of the mA and/or kV according to patient size. 3. Use of iterative reconstruction technique. Electronically signed by: Na Boyer MD (06/04/2018 12:25 PM) [place] [id number]
[2018-06-04] MEDS ORDERED: ONDA4TAB7 PO (13:05)
== END 2018-06-04 13:13 | disposition home or self-care (01) ==
LOC: ER 08:52
DX: R11.2 Nausea with vomiting, unspecified (principal); R19.7 Diarrhea, unspecified; R10.84 Generalized abdominal pain; J98.11 Atelectasis; F17.210 Nicotine dependence, cigarettes, uncomplicated; Z96.22 Myringotomy tube(s) status; Z88.0 Allergy status to penicillin; Z91.018 Allergy to other foods
CPT/HCPCS: 36415; 74177; 80053; 80307; 81001; 81025; 83605; 83690; 85007; 85025; 87086; 96361; 96374; 99284; J2405; J7030; Q9967

== ENCOUNTER 2019-04-19 19:23 | Emergency (ER) | payer SELFPAY ==
[2018-10-15 19:43] VITALS: BP 120/50
[~2019-04-19 19:23] MED LIST changes: +NITR100C62 PO; +ONDA4TAB7 PO
== END 2019-04-19 19:30 | disposition left against medical advice (07) ==
LOC: ER 19:23
DX: K92.0 Hematemesis (principal); R51 Headache; Z53.21 Procedure and treatment not carried out due to patient leaving prior to being seen by health care provider